=== PATIENT | male | born 1990 | race Two or more races ===

== ENCOUNTER 2022-07-26 13:30 | Emergency (ER) | payer OTHER ==
[2022-07-26] MEDS ORDERED: IBUPROFEN 600 MG TABLET (FP) PO ONE ×2 (13:44→14:04)
[2022-07-26 14:12] VITALS: BP 114/75; PULSE 65; RESP 18; TEMP 97.8; BMI 39.3
== END 2022-07-26 16:09 | disposition home or self-care (01) ==
LOC: FER 13:30
DX: S93.601A Unspecified sprain of right foot, initial encounter (principal); X50.0XXA Overexertion from strenuous movement or load, initial encounter
CPT/HCPCS: 73562-TC-LT-FY; 73610-TC-RT-FY; 73630-TC-RT-FY; 99284-25